=== PATIENT | female | born 1960 | race Caucasian/White ===

== ENCOUNTER 2017-07-26 07:19 | Day surgery (SDC) | payer BC, SELFPAY ==
[2017-07-26 07:37] VITALS: BP 142/74; PULSE 98; RESP 16; TEMP 37.1; O2SAT 100; BMI 25.5
--- NOTE | 2017-07-26 07:53 | HP.PCM_ITS ---
Past Medical/Surgical History - Planned Operation Planned Operative Procedure/s: colonoscopy Date of Operative Procedure: 07/26/17 Permit Signed: No S.O.S: No Is This Patient Having a Total Joint: No - Previous Hospitalizations/Surgeries HX Hospitalizations: No HX of Surgeries: deviated septum. hysterectomy. total thyroidectomy. knee scope. left ankle surgery Any Problems With Anesthesia: Yes - nausea and vomiting You/Your Family Experience Fever (Hyperthermia) With Anes: No Cholinesterase deficiency: No - Cardiovascular Hx Chest Pain within Last 2 months: No Hx of Irregular Heartbeat and/or Afib: No - mvp Hx Heart Attack: No Hx Congestive Heart Failure: No Hx Rheumatic Fever: No Hx Hypertension: No Hx Internal Defibrillator: No Hx Pacemaker: No Hx Cardiac Catheterization: No Hx Cardiac Surgery/Stents/Etc.: No Hx Stress Test: No HX Edema: No Hx Pain in Legs when Walking/Leg Cramps: Yes - cramps - Respiratory Chronic Cough: No HX of Shortness of Breath: Yes - slightly sob with 2 flights of stairs Hoarseness: No Hx Chronic Obstructive Pulmonary Disease (COPD): No Hx Asthma: No Hx Emphysema: No Hx Sleep Apnea: No Hx Oxygen Use at Home: No Hx Respiratory Tract Infection/Cold (presently): No Do You Snore Loudly (louder than talking or can be heard): No Do You Often Feel Tired/ Fatigued/ Sleepy Dring Daytime?: No Has Anyone Observed You Stop Breathing During Sleep?: No Result (for STOP score): Negative Hx Smoking: No Smoking Status: Never smoker - Gastrointestinal Hx Gastroesophageal Reflux: No Hx Gastrointestinal Disorders: Yes - ibs Hx Gastrointestinal Bleed: No Hx Ulcer: No Hx Hiatal Hernia: No Difficulty Chewing/Swallowing: No Recent Onset of Swallowing Problems: No Special diet followed at home: No Hx Unplanned Weight Loss of 20#: No HX Unplanned Weight Gain of 20#: No - Neurological Hx Seizures: No HX Syncope/Blackout Spells/Unconsciousness: No - vertigo prn Hx CVA/Stroke: No Hx Transient Ischemic Attacks (TIA): No Hx Multiple Sclerosis: No Hx Parkinson's Disease: No Hx Head/Neck Injury: No Hx Headaches: No Hx Back Injury/Pain: No Recent Onset of Speech Difficulty: No Restless Legs: No Does patient have nerve stimulator: No Patient instructed to have device shut off: No Rep notified?: No - Blood Disorder Hx Leukemia: No Bleeding Tendencies: No Hx Deep Vein Thrombosis: No Hx High Cholesterol: No Blood Transmitted Disease: No Hx Hepatitis: No Hx Cirrhosis: No Hx Anemia: No Hx Blood Disorders: No - Reproduction : No Is Patient Lactating: No Hx Hysterectomy: Yes Hx Tubal Ligation: No Are You Post Menopause: Yes - Genitourinary Hx Renal Disease: No - Musculoskeletal Hx Arthritis: No Hx Rheumatoid Arthritis: No Hx Gout: No Recent Onset of an Orthopedic Problem: No - Endocrine Hx Diabetes: No Thyroid Disease: Yes - on med Hx Steroid Therapy: No - Psycho/Social Hx Substance Use: No Hx Alcohol Use: No Hx Anxiety: No Hx Depression: No Mental Illness: No Hx Dementia: No - Miscellaneous Hx Cancer: Yes - thyroid Recent Exposure to Contagious Disease: No Active MRSA: No Hx of C-Diff: No Any Loose Teeth: No Allergies No Known Allergies Allergy (Verified 07/22/17 11:41) Home Medications Medication Instructions Recorded Calcium Carbonate [Calcium] 600 mg PO DAILY 07/22/17 Cholecalciferol (Vitamin D3) 1,000 unit PO DAILY 07/22/17 [Vitamin D3] Levothyroxine Sodium [Synthroid] 100 mcg PO DAILY 07/22/17 Magnesium 250 mg PO DAILY 07/22/17 Multivitamin [Multiple Vitamins] 1 each PO DAILY 07/22/17 Vitamin E 400 units PO DAILY 07/22/17 - Discharge Is Pt Admitted From a Fdc, or a Halfway: No Who Could Help: family After D/C, Where Do you Plan to Go: Return Home - Physical Exam General: Alert, Oriented x3, Cooperative Lungs: Normal air movement Cardiovascular: Regular rate, Regular Rhythm Abdomen: Soft, Non Tender, Non-Distended Vital Signs Temp Pulse Resp BP Pulse Ox 98.7 F 98 16 142/74 H 100 07/26/17 07:37 07/26/17 07:37 07/26/17 07:37 07/26/17 07:37 07/26/17 07:37 Oxygen Delivery Method Room Air Weight: 158 lb 8.198 oz Body Mass Index (BMI) 25.5 Assessment/Plan 56-year-old female screening colonoscopy 1. Patient reports her last colonoscopy was about 20 years ago and she does not think they found anything. She is not currently having any issues. She is not having any blood in her stool or abdominal pain. She has no family history of colon cancer. 2. I explained endoscopy in detail to the patient. I explained the risks including but not limited to stroke or heart attack with anesthesia, perforation of the GI tract, bleeding, infection. I explained that any of these could necessitate further emergency surgery. The patient understands and all questions were answered sufficiently. The patient wishes to proceed with procedure. Chema Allison MD Pager: [facility] [address], [address] [address] Office: Surgery Risks - Colonoscopy Risks Include but are not Limited To: Risks include but are not limited to: Bleeding, perforation requiring further surgery, inability to complete colonoscopy requiring barium enema.
[2017-07-26 09:03] VITALS: BP 108/63; BP 142/74; PULSE 84; RESP 16; TEMP 36.6; O2SAT 100
[2017-07-26 09:08] VITALS: BP 109/77; BP 142/74; PULSE 80; RESP 16; O2SAT 100
[2017-07-26 09:13] VITALS: BP 121/71; BP 142/74; PULSE 82; RESP 16; O2SAT 100
[2017-07-26 09:18] VITALS: BP 125/71; BP 142/74; PULSE 75; RESP 16; TEMP 36.6; O2SAT 100
[2017-07-26 09:46] VITALS: BP 142/74
--- NOTE | 2017-07-26 10:14 | PCM.OPRPT ---
Problem List (1) Screen for colon cancer Status: Acute Report of Operation Date of Procedure: 07/26/17 Pre-Operative Diagnosis: Screening colon cancer Post-Operative Diagnosis: Normal colonoscopy Surgery/Procedure Performed:: Colonoscopy Description of Procedure: The major risks and benefits associated with the procedure were explained to the patient in detail. The patient verbalized understanding and agreement with the same. The patient was brought to the endoscopy suite. After adequate sedation was achieved, the patient was placed in the left lateral decubitus position and a digital rectal exam was performed. This examination was within normal limits. A well-lubricated colonoscope was then inserted into the rectum and advanced under direct visualization to the level of the cecum. The bowel prep was good. The cecum was identified by both visual and anatomic landmarks. A photograph was taken of the end of the cecum. The scope was then fully withdrawn while examining the color, texture, anatomy and integrity of the mucosa from the cecum to the anal canal. The findings were consistent with normal colonic mucosa. Over 6 minutes were taken to examine the colonic mucosa. Upon reaching the rectum the scope was retroflexed to examine the distal rectal vault. The scope was then straightened and was completely retrieved upon exiting the anal canal and the procedure was terminated. The patient was then transferred to the recovery room in stable condition. Recommendations for follow up: 10 years
== END 2017-07-26 09:47 | disposition home or self-care (01) ==
LOC: EN 07:20 → AC 07:21
PROVIDERS: Visit Provider Surgery
PROC: 0DJD8ZZ Inspection of Lower Intestinal Tract, Via Natural or Artificial Opening Endoscopic (ICD-10-PCS; CPT 45378; principal; 2017-07-26 08:25)
DX: Z12.11 Encounter for screening for malignant neoplasm of colon (principal); E89.0 Postprocedural hypothyroidism; K58.9 Irritable bowel syndrome, unspecified; Z79.899 Other long term (current) drug therapy; Z78.0 Asymptomatic menopausal state; Z90.710 Acquired absence of both cervix and uterus
CPT/HCPCS: 45378; J7120

== ENCOUNTER 2024-11-29 14:00 | Outpatient (RCR) | payer MEDICARE, SELFPAY ==
--- NOTE | 2024-10-18 09:33 | HP.PTEVAL_ITS ---
Patient's Visit Information Visit Information Visit Information: AZALEA FREIRE is a 64 year old F referred to Physical Therapy by [facility]ON[facility] with a diagnosis of R32 Unspecified urinary incontinence. Date of Evaluation: 10/18/24 Physical Therapist: Michelle Ni Visit Plan Frequency: 1x/Week Duration: 3 Months Plan: Continue 1 x week. Continue internal pelvic floor work to address left sided tightness. She has moderate pelvic floor tightness left side layer 2-3. Difficulty with contraction (very faint) and unable to relax fully or bear down. Started her on deep breathing for pelvic floor relaxation and went over that with her today. Also educated her on quick flicks for lessening urgency. May need to do a bladder diary in 2-3 visits if no improvement in frequency. Subjective Subjective: She is coming in for incontinence for several years (6 years?). She doesn't drink anything if she is traveling or out and about doing errands. She usually won't drink anything as she has increased urgency and frequency. When she is out and about, she goes straight to the restroom. When she is home , she goes frequently 9-12 times. As she starts urinating, she is dripping and she can't hold. She can leak with a sneeze but not always. Based on how much fluid she is consuming. She would not get on a trampoline. She has urina ting once laughing but been a while. No low back issues. No pain complaints. She does elliptical, treadmill, weights, etc. 3-4 x week. She works outside in the yard, working out in the yard. 2 children out of state. 2 grandkids. She stays away from caffeine. She wears a pad and she changes 2-4 x day. Sometimes she loses control of her bladder completely when she is pulling her pants down. Her goal is to address the leaking and not have to live around where is the nearest restroom. Objective Objective: Moderate pelvic floor tightness left side layer 2-3, LAYCOCK , Left upslip, Left rotation T10-L5 , Moderate left lumbar and piriformis tightness , difficulty relaxing between contractions, Unable to bear down to evaluate for prolapse Incontinence Impact questionnaire 10, Urogenital distress inventory 13 Goals Goal 1:: Azalea will be on a more normal voiding schedule of urinating 5-7 x day to allow for less disruption during day to day activities. Goal Time Frame: 8-12 Weeks Goal 2:: Azalea will be able to delay using the restroom by 5 minutes when urgency comes on . Goal Time Frame: 6-8 Weeks Goal 3:: Azalea will be able to sneeze without leaking. Goal Time Frame: 8-12 Weeks Goal 4:: Azalea will be able to go thru day to day activities without the need for a pad. Goal Time Frame: 8-12 Weeks Rehabilitation Potential Physical Therapy Diagnosis: Urge incontinence, frequency of micturition, Stress incontinence Rehabilitation Potential: Good Anticipated Interventions Patient/Client Instruction: Educate patient on: Condition and Plan of Care For the Purpose of:: To improve muscle performance and motor function, To improve health and function and To improve self management Therapeutic Exercise to Include: Strength training, Endurance training, Neuromotor development and Relaxation training For the Purpose of:: To improve muscle performance and motor function, To improve health and function and To improve self management Manual Therapy Techniques to Include: Trigger point massage and Soft tissue mobilization For the Purpose of:: To improve muscle performance and motor function, To improve health and function and To improve self management Text: Thank you for the opportunity to evaluate your patient. For Medicare and Medicare HMO plans, please review the plan of care and approve it. It will need to be FAXED BACK to us at [phone] for Medicare purposes. For Medicare only, by signing this I certify the plan of care. Please let me know if there are questions or concerns regarding this plan of care. Physician Signature: Date:
--- NOTE | 2025-01-30 12:50 | HP.PT.NRP ---
Patient Information Patient Information: AZALEA FREIRE was seen in my office for initial evaluation on 10/18/24. The following Plan of Care was established for this patient: POC Established Initial Frequency: 1x/Week Initial Duration: 3 Months Anticipated Interventions Patient/Client Instruction: Educate patient on: Condition and Plan of Care For the Purpose of:: To improve muscle performance and motor function, To improve health and function and To improve self management Therapeutic Exercise to Include: Strength training, Endurance training, Neuromotor development and Relaxation training For the Purpose of:: To improve muscle performance and motor function, To improve health and function and To improve self management Manual Therapy Techniques to Include: Trigger point massage and Soft tissue mobilization For the Purpose of:: To improve muscle performance and motor function, To improve health and function and To improve self management Last Seen Last Seen: This patient was last seen in our office 11/29/24. Pertinent comments regarding their Physical therapy will appear below: Called to check in with patient as she has not been in since mid November. Left a voicemail and told her we would be discharging her from PT and closing her chart as she has not returned for treatment. At this point I will be discontinuing this patient from physical therapy. I would be happy to see this patient again in the future if found appropriate by the physician. Thank you! Michelle Ni
== END 2024-11-29 19:00 | disposition home or self-care (01) ==
LOC: PT 14:00
PROVIDERS: PCP Family Medicine
DX: R32 Unspecified urinary incontinence (principal)
CPT/HCPCS: 97110; 97112; 97140; 97161; 97530